=== PATIENT | male | born 1965 | race Caucasian/White ===

== ENCOUNTER 2019-01-05 18:58 | Inpatient (IN) | payer BC ==
[~2019-01-05] VITALS: Ht 188 cm; Wt 98.1 kg
[~2019-01-05 18:58] MED LIST: AMIODARONE 360MG/200ML PREMIX ONE; AMIODARONE 50 MG/ML, 3ML ONE; EPINEPHRINE 1 MG/ML, 1ML ONE; EPINEPHRINE SYRINGE 0.1 MG/ML, 10ML ONE; HEPARIN 5,000 UNITS/ML, 1ML ONE
--- NOTE | 2019-01-05 19:29 | NUR ---
PT ARRIVES VIA EMS FROM [facility] AFTER EXPERIENCING CHEST DISCOMFORT X 2 DAYS. PT REPORTS THAT HE HAD SOME BURNING SENSATION ON HIS LEFT SIDE AND INDEGESTION FEELING. PT REPORTS THAT UNLOADING AND LOADING THE CAR SEEM TO HAVE MADE THE PAIN WORSE. PT DENIES TRUAMA BUT REPORTS PREVIOUS UT. PT DOES HAVE A STENT. PT REPROTS DISCOFORT HAS RESOLVED NOW. PT WAS GIVEN ANTICOAGULANT AT [facility] ED. PT CONNECTED TO ALL MONITORS AND CALL LIGHT IN REACH. VSS. AWAITING FURTHER ORDERS.
[2019-01-05] MEDS ORDERED: PLEASE ENTER HEIGHT AND WEIGHT MC SCH (20:00)
[2019-01-05] MEDS ORDERED: CLOPIDOGREL 300 MG TABLET PO ONE (20:00)
--- NOTE | 2019-01-05 20:10 | NUR ---
LATE ENTRY: SPOKE WITH HYACINTH PRICE AND MD KAURDNG ELEVATION IN [place] FROM LABS DONE AT [facility], AT THIS TIME NO INTERVENTION PER ED MD PT TO HAVE PLAVIX STARTED. [facility].
--- NOTE | 2019-01-05 20:44 | NUR ---
REPORT TO NOAM
--- NOTE | 2019-01-05 20:44 | NUR ---
PT MEDICATED PER EMAR
--- NOTE | 2019-01-05 20:53 | NUR ---
PT GIVEN MEAL PER MD. HUYNH.
[2019-01-05] MEDS ORDERED: ATORVASTATIN 80 MG TABLET PO SCH (21:00)
[2019-01-05 21:06] VITALS: BP 131/88
[2019-01-05] MEDS ORDERED: CODE BLUE RESPONSE XX ONE (21:34)
[2019-01-05] MEDS ORDERED: HEPARIN 5,000 UNITS/ML, 1ML IV PRN (22:00)
[2019-01-05] MEDS ORDERED: HEPARIN 5,000 UNITS/ML, 1ML IV ONE (22:00)
[2019-01-05] MEDS ORDERED: HEPARIN 25,000 UNITS/500ML PMX 500 ML IV PRN (22:00)
[2019-01-05 22:02] LABS: MEAN CORPUSCULAR HEMOGLOBIN 32.1 pg (27.5-34.5); MEAN CORPUSCULAR HGB CONC 33.3 g/dL (33.2-36.2); MEAN CORPUSCULAR VOLUME 96.6 fL (81-97); MEAN PLATELET VOLUME 8.2 fL (7.4-10.4); PLATELET COUNT 200 x10^3/uL (130-400); RED BLOOD COUNT 5.01 x10^6/uL (4.38-5.82); RED CELL DISTRIBUTION WIDTH 13.3 % (9.4-14.8)
[2019-01-05] MEDS ORDERED: VERAPAMIL 2.5 MG/ML, 2ML ONE (22:07)
[2019-01-05] MEDS ORDERED: FENTANYL PF 100 MCG/2ML ONE (22:07)
[2019-01-05] MEDS ORDERED: MIDAZOLAM 1 MG/ML, 5ML ONE (22:07)
[2019-01-05] MEDS ORDERED: BIVALIRUDIN 250 MG ONE (22:07)
[2019-01-05] MEDS ORDERED: HEPARIN 1,000 UNITS/ML, 10ML ONE (22:07)
[2019-01-05] MEDS ORDERED: TICAGRELOR 90 MG TABLET ONE (22:07)
[2019-01-05] MEDS ORDERED: LIDOCAINE 2%, 20ML ONE (22:07)
[2019-01-05 22:13] LABS: INTERNATIONAL NORMALIZED RATIO 1.05 (0.93-1.1)
[2019-01-05 22:15] LABS: ALBUMIN 3.9 g/dL (3.4-5.0); ANION GAP 16 mmol/L (5-15); CALCIUM 8.7 mg/dL (8.5-10.1); CHLORIDE 108 mmol/L (98-107)
[2019-01-05 22:20] LABS: ALANINE AMINOTRANSFERASE 341 U/L (12-78); ALKALINE PHOSPHATASE 66 U/L (45-117); BILIRUBIN,TOTAL 1.1 mg/dL (0.2-1.0); CREATININE 1.56 mg/dL (0.7-1.3); TOTAL PROTEIN 7.3 g/dL (6.4-8.2)
[2019-01-05 22:22] LABS: MD YES
[2019-01-05] MEDS: AMIODARONE 900 MG in DEXTROSE 5% 482 ML IV PRN (22:30)
[2019-01-05] MEDS ORDERED: FILTER 0.22 MICRON FOR AMIODARONE IV PRN (22:30)
[2019-01-05 22:40] LABS: EOS#(MANUAL) 0.08 x10^3/uL (0.0-0.4); EOS% (MANUAL) 1 % (1-7); LYMPH#(MANUAL) 5.06 x10^3/uL (1-3.4); LYMPHS% (MANUAL) 64 % (22-44); MONOS#(MANUAL) 0.16 x10^3/uL (0.3-2.7); MONOS% (MANUAL) 2 % (2-9); REACTIVE LYMPHS # (MANUAL) 1.98 x10^3/uL (0-0); REACTIVE LYMPHS % (MANUAL) 25 % (0-0); SEG#(MANUAL) 0.63 x10^3/uL (1.8-6.8); SEGS% (MANUAL) 8 % (42-75)
[2019-01-05] MEDS ORDERED: PRASUGREL 10 MG TABLET ONE (22:41)
[2019-01-05 22:42] LABS: POLYCHROMASIA 1+
[2019-01-05 22:43] LABS: <PLATELET ESTIMATE> ADEQUATE; <PLT MORPHOLOGY> NORMAL PLT MORPH
[2019-01-05] MEDS ORDERED: BIVALIRUDIN 250 MG in SODIUM CHLORIDE 0.9% 50 ML IV SCH (23:20)
[2019-01-05] MEDS ORDERED: ONDANSETRON 2MG/ML, 2ML ONE (23:58)
[2019-01-06] MEDS ORDERED: ZOLPIDEM 10MG TABLET PO PRN
[2019-01-06] MEDS ORDERED: ONDANSETRON 2MG/ML, 2ML IVPush PRN
[2019-01-06] MEDS ORDERED: MORPHINE SULFATE 4 MG/ML, 1ML IVPush PRN
[2019-01-06] MEDS: SODIUM CHLORIDE 0.9% 1,000 ML IV SCH ×2 (00:12→09:12)
[2019-01-06] MEDS: NS + 40MEQ KCL 1,000 ML IV SCH ×2 (00:51→09:12)
[2019-01-06] MEDS: AMIODARONE 900 MG in DEXTROSE 5% 482 ML IV PRN (03:20)
[2019-01-06 04:34] LABS: ANION GAP 8 mmol/L (5-15); CALCIUM 8.6 mg/dL (8.5-10.1); CHLORIDE 111 mmol/L (98-107); CREATININE 1.15 mg/dL (0.7-1.3)
[2019-01-06] MEDS ORDERED: ASPIRIN 81 MG TABLET EC ONE (05:54)
[2019-01-06] MEDS: ASPIRIN 81 MG TABLET EC PO SCH (05:56)
[2019-01-06] MEDS ORDERED: ASPIRIN 325 MG TABLET PO SCH (06:00)
[2019-01-06] MEDS ORDERED: SODIUM PHOSPHATE 20 MMOL in SODIUM CHLORIDE 0.9% 500 ML IV ONE (07:00)
[2019-01-06] MEDS: METOPROLOL TARTRATE 25 MG TABLET PO SCH ×2 (08:30→17:56)
[2019-01-06] MEDS ORDERED: PRASUGREL 10 MG TABLET PO SCH (09:00)
[2019-01-06] MEDS: LISINOPRIL 5 MG TABLET PO SCH ×2 (09:18→19:37)
[2019-01-06] MEDS: TICAGRELOR 90 MG TABLET PO SCH ×2 (09:19→19:37)
[2019-01-06 10:18] LABS: BASOPHILS # (AUTO) 0.02 x10^3/uL (0-0.1); BASOPHILS % (AUTO) 0 % (0-1); EOSINOPHILS # (AUTO) 0.01 x10^3/uL (0-0.4); EOSINOPHILS % (AUTO) 0 % (1-7); LYMPHOCYTES # (AUTO) 1.11 x10^3/uL (1-3.4); LYMPHOCYTES % (AUTO) 15 % (22-44); MD NO; MEAN CORPUSCULAR HEMOGLOBIN 31.8 pg (27.5-34.5); MEAN CORPUSCULAR VOLUME 96.3 fL (81-97); MEAN PLATELET VOLUME 8.4 fL (7.4-10.4); MONOCYTES # (AUTO) 0.58 x10^3/uL (0.2-0.8); MONOCYTES % (AUTO) 8 % (2-9); NEUTROPHILS % (AUTO) 77 % (42-75); PLATELET COUNT 182 x10^3/uL (130-400); RED BLOOD COUNT 4.52 x10^6/uL (4.38-5.82); RED CELL DISTRIBUTION WIDTH 13.3 % (9.4-14.8)
[2019-01-06] MEDS ORDERED: HYDROcodone/APAP 5/325 TABLET PO PRN (19:30)
[2019-01-07 05:03] LABS: ALBUMIN 3.5 g/dL (3.4-5.0); ANION GAP 6 mmol/L (5-15); CALCIUM 8.5 mg/dL (8.5-10.1); CHLORIDE 113 mmol/L (98-107)
[2019-01-07 05:09] LABS: ALANINE AMINOTRANSFERASE 260 U/L (12-78); ALKALINE PHOSPHATASE 58 U/L (45-117); BILIRUBIN,TOTAL 0.6 mg/dL (0.2-1.0); CHOL/HDL RATIO 2.7; CHOLESTEROL, TOTAL 101 mg/dL (140-239); CREATININE 1.12 mg/dL (0.7-1.3); HDL CHOL % 37 % (26-37); HDL CHOLESTEROL (DIRECT) 37 mg/dL (40-60); LDL CHOLESTEROL,CALCULATED 47 mg/dL (54-169); LDL/HDL RATIO 1.3 (0.5-3.0); TOTAL PROTEIN 6.9 g/dL (6.4-8.2); TRIGLYCERIDES 84 mg/dL (50-200); VLDL CHOLESTEROL 17 mg/dL (0-25)
[2019-01-07] MEDS: METOPROLOL TARTRATE 25 MG TABLET PO SCH ×2 (06:00→18:00)
[2019-01-07] MEDS: ASPIRIN 81 MG TABLET EC PO SCH (06:06)
[2019-01-07] MEDS: LISINOPRIL 5 MG TABLET PO SCH ×2 (08:38→20:47)
[2019-01-07] MEDS: TICAGRELOR 90 MG TABLET PO SCH ×2 (08:38→20:47)
[2019-01-07 14:15] VITALS: BP 135/82
[2019-01-07 19:14] VITALS: BP 110/71
[2019-01-07] MEDS ORDERED: ATORVASTATIN 80 MG TABLET PO SCH (21:00)
[2019-01-08 02:11] VITALS: BP 106/64
[2019-01-08] MEDS: METOPROLOL TARTRATE 25 MG TABLET PO SCH (06:00)
[2019-01-08 07:59] VITALS: BP 114/78
[2019-01-08] MEDS ORDERED: ASPI81TA45 PO (08:27)
[2019-01-08] MEDS ORDERED: NITR0.4T28 SL (08:27)
[2019-01-08] MEDS ORDERED: TICA90TA PO (08:27)
[2019-01-08] MEDS ORDERED: LISI5TAB7 PO (08:27)
[2019-01-08] MEDS ORDERED: ATOR-2 PO (08:27)
[2019-01-08] MEDS ORDERED: ACET325T26 PO (08:28)
[2019-01-08] MEDS: TICAGRELOR 90 MG TABLET PO SCH (09:07)
[2019-01-08] MEDS: LISINOPRIL 5 MG TABLET PO SCH (09:07)
[2019-01-08] MEDS: ASPIRIN 81 MG TABLET EC PO SCH (09:07)
== END 2019-01-08 11:15 | disposition home or self-care (01) | DRG 246 ==
LOC: ED 19:50 → EDIP 20:15 → 5SO 20:55 → CCU 23:19 → 5SO 01-07 11:04 → DCLOUNGE 01-08 10:57
PROVIDERS: ADMIT Internal Medicine; ATTEND Internal Medicine
PROC: 027034Z Dilation of Coronary Artery, One Artery with Drug-eluting Intraluminal Device, Percutaneous Approach (ICD-10-PCS; principal; 2019-01-05)
PROC: 4A023N7 Measurement of Cardiac Sampling and Pressure, Left Heart, Percutaneous Approach (ICD-10-PCS; 2019-01-05)
PROC: B2111ZZ Fluoroscopy of Multiple Coronary Arteries using Low Osmolar Contrast (ICD-10-PCS; 2019-01-05)
PROC: B2151ZZ Fluoroscopy of Left Heart using Low Osmolar Contrast (ICD-10-PCS; 2019-01-05)
PROC: 5A2204Z Restoration of Cardiac Rhythm, Single (ICD-10-PCS; 2019-01-05)
PROC: 5A12012 Performance of Cardiac Output, Single, Manual (ICD-10-PCS; 2019-01-05)
DX: T82.867A Thrombosis due to cardiac prosthetic devices, implants and grafts, initial encounter (principal); I21.09 ST elevation (STEMI) myocardial infarction involving other coronary artery of anterior wall; I49.01 Ventricular fibrillation; I49.02 Ventricular flutter; K72.00 Acute and subacute hepatic failure without coma; I46.2 Cardiac arrest due to underlying cardiac condition; E87.2 Acidosis; N17.9 Acute kidney failure, unspecified; E78.5 Hyperlipidemia, unspecified; I25.10 Atherosclerotic heart disease of native coronary artery without angina pectoris; I25.2 Old myocardial infarction; R73.9 Hyperglycemia, unspecified; Y92.89 Other specified places as the place of occurrence of the external cause; Y83.1 Surgical operation with implant of artificial internal device as the cause of abnormal reaction of the patient, or of later complication, without mention of misadventure at the time of the procedure; Z87.891 Personal history of nicotine dependence; Z82.49 Family history of ischemic heart disease and other diseases of the circulatory system; Z82.0 Family history of epilepsy and other diseases of the nervous system
CPT/HCPCS: 36415; 36600; J3490; 0399T; 80048; 80053; 80061; 82803; 83605; 83735; 84100; 84484; 85025; 85610; 85730; 87081; 93005; 93306; 93458; 99156; 99157; C1760; C1769; C1894; G0378; J0171; J0583; J1644; J2250; J2405; J3010; C1725; C1874; C1887; J0282; J2270; J3480; J7030; J7040; J7060; Q9967